=== PATIENT | female | born 1950 | race Caucasian/White ===

== ENCOUNTER 2020-07-22 14:51 | Inpatient (IN) ==
[2020-07-22] MEDS ORDERED: Dexamethasone 4 MG/ML VIAL IVP STA (15:27)
[2020-07-22] MEDS ORDERED: Acetaminophen 325 MG TABLET PO ONE (15:35)
[2020-07-22 15:43] LABS: VBG HCO3 28 mEq/L (21-27); VBG PCO2 43 mmHg (41-51); VBG PH 7.42 pH Units (7.32-7.42); VBG PO2 43 mmHg (25-50)
[2020-07-22 15:51] LABS: Basophils % 0.2 %; Hematocrit 42.9 % (35.3-44.9); Hemoglobin 14.1 g/dL (11.5-15.4); Immature Granulocytes % 0.6 % (0-4); Lymphocytes % 6.5 %; Mean Corpuscular HGB Conc 32.9 g/dL (31.6-35.5); Mean Corpuscular Volume 88.1 fL (83.0-100.0); Mean Platelet Volume 10.6 fL (9.4-12.4); Monocytes # 0.8 K/mcL (0.0-1.3); Monocytes % 5.1 %; Platelet Count 266 K/mcL (140-400); Red Blood Count 4.87 M/mcL (3.82-4.97); Red Cell Distribution Width 13.3 % (11.5-14.5); Segmented Neutrophils % 87.6 %
[2020-07-22 16:13] LABS: BUN/Creatinine Ratio 18 (6-26); Blood Urea Nitrogen 19 mg/dL (8-23); Calcium 9.1 mg/dL (8.6-10.3); Carbon Dioxide 27 mEq/L (23-29); Chloride 97 mEq/L (98-107); Glucose 135 mg/dL (70-105); Osmolality,Calculated 284 (280-300); Potassium 3.9 mEq/L (3.5-5.1); Sodium 135 mEq/L (136-145); Troponin I < 0.03 ng/mL (< 0.04); eGFR For African Americans > 60 (> 60); eGFR For Non-African Americans 51 (> 60)
[2020-07-22] MEDS ORDERED: Azithromycin 500 MG in 0.9 % Sodium Chloride 250 ML IVPB ONE (20:31)
[2020-07-22] MEDS ORDERED: cefTRIAXone 1,000 MG in Water for inj. (sterile) 10 ML IVP ONE (20:31)
[2020-07-22] MEDS ORDERED: Naloxone 0.4 MG/ML INJ IVP PRN (20:46)
[2020-07-22] MEDS ORDERED: Ondansetron 4 MG/2 ML VIAL IVP PRN (20:46)
[2020-07-22] MEDS ORDERED: Isovue-370 500 ML BOTTLE IVP ONE (20:51)
[2020-07-22] MEDS ORDERED: 0.9 % Sodium Chloride 250 ML IVC SCH (21:00)
[2020-07-22 21:32] LABS: Alanine Aminotransferase 43 Units/L (7-52); Albumin 3.5 g/dL (3.5-5.7); Alkaline Phosphatase 153 Units/L (34-104); Aspartate Amino Transferase 57 Units/L (13-39); Bilirubin,Direct 0.3 mg/dL (0.0-0.2); Bilirubin,Indirect 0.5 mg/dL (0.0-1.0); Bilirubin,Total 0.8 mg/dL (0.3-1.0); Globulin 3.6 g/dL (2.4-3.5); Lactate Dehydrogenase 328 Units/L (140-271); Total Protein 7.1 g/dL (6.4-8.9)
[2020-07-22 21:49] LABS: Ferritin 646 ng/mL (10-120)
[2020-07-22 21:59] LABS: INR 1.4; Prothrombin Time 16.4 Seconds (9.4-12.1)
[2020-07-22 22:01] LABS: Activated Partial Thrombo Time 37.1 Seconds (26.0-36.0)
[2020-07-23] MEDS: Dexamethasone 4 MG/ML VIAL IVP SCH ×3 (00:02→20:18)
[2020-07-23] MEDS: Ipratropium Neb 0.5 MG NEBULIZER IH SCH ×3 (00:28→07:38)
[2020-07-23] MEDS ORDERED: *HR* Enoxaparin 40 MG/0.4 ML SYRINGE SQ SCH (06:00)
[2020-07-23] MEDS: Ipratropium 1 PUFF INHALER IH SCH ×4 (07:37→19:49)
[2020-07-23] MEDS: Furosemide 20 MG/2 ML VIAL IVP SCH ×2 (08:42→20:18)
[2020-07-23] MEDS: levoFLOXacin 750 MG/150 ML 750 MG/150 ML BAG IVPB SCH (08:42)
[2020-07-23 09:19] LABS: Basophils % 0.1 %; Hematocrit 42.9 % (35.3-44.9); Hemoglobin 13.7 g/dL (11.5-15.4); Immature Granulocytes % 0.7 % (0-4); Lymphocytes # 0.8 K/mcL (0.6-4.6); Lymphocytes % 4.1 %; Mean Corpuscular HGB Conc 31.9 g/dL (31.6-35.5); Mean Corpuscular Hemoglobin 28.1 pg (28.0-33.3); Mean Corpuscular Volume 88.1 fL (83.0-100.0); Mean Platelet Volume 10.5 fL (9.4-12.4); Monocytes # 0.7 K/mcL (0.0-1.3); Monocytes % 3.3 %; Neutrophils # 18.5 K/mcL (1.6-8.9); Platelet Count 293 K/mcL (140-400); Red Blood Count 4.87 M/mcL (3.82-4.97); Red Cell Distribution Width 13.4 % (11.5-14.5); Segmented Neutrophils % 91.8 %; White Blood Count 20.2 K/mcL (4.3-11.1)
[2020-07-23 09:38] LABS: Albumin 3.6 g/dL (3.5-5.7); Albumin/Globulin Ratio 0.9 (1.1-2.2); Bilirubin,Total 0.6 mg/dL (0.3-1.0); Calcium 9.1 mg/dL (8.6-10.3); Globulin 3.8 g/dL (2.4-3.5); Magnesium 2.2 mg/dL (1.6-2.6); Phosphorous 3.3 mg/dL (2.7-4.5); Potassium 3.5 mEq/L (3.5-5.1); Total Protein 7.4 g/dL (6.4-8.9)
[2020-07-23] MEDS ORDERED: 0.9 % Sodium Chloride 250 ML ONE (17:09)
[2020-07-23] MEDS: carvediloL 6.25 MG TABLET PO SCH (17:15)
[2020-07-23] MEDS: Acetaminophen 325 MG TABLET PO PRN (20:19)
[2020-07-23] MEDS: *HR* Dabigatran 150 MG CAPSULE PO SCH (20:19)
[2020-07-23] MEDS ORDERED: 0.9 % Sodium Chloride 500 ML ONE (21:07)
[2020-07-24] MEDS: Ipratropium 1 PUFF INHALER IH SCH ×7 (00:03→23:40)
[2020-07-24] MEDS: Dexamethasone 4 MG/ML VIAL IVP SCH ×2 (08:21→19:55)
[2020-07-24] MEDS: *HR* Dabigatran 150 MG CAPSULE PO SCH ×2 (08:21→19:56)
[2020-07-24] MEDS: levoFLOXacin 750 MG/150 ML 750 MG/150 ML BAG IVPB SCH (08:22)
[2020-07-24] MEDS: carvediloL 6.25 MG TABLET PO SCH ×2 (08:22→17:16)
[2020-07-24] MEDS: Furosemide 20 MG/2 ML VIAL IVP SCH ×2 (08:22→19:56)
[2020-07-24] MEDS: *HR* HYDROcodone/Acet 5/325 mg TABLET PO PRN ×2 (10:53→17:15)
[2020-07-24] MEDS: Acetaminophen 325 MG TABLET PO PRN (22:15)
[2020-07-25 02:35] LABS: Basophils # 0.1 K/mcL (0.0-0.2); Basophils % 0.3 %; Hematocrit 41.3 % (35.3-44.9); Hemoglobin 13.3 g/dL (11.5-15.4); Immature Granulocytes % 0.9 % (0-4); Lymphocytes # 0.9 K/mcL (0.6-4.6); Lymphocytes % 5.3 %; Mean Corpuscular HGB Conc 32.2 g/dL (31.6-35.5); Mean Corpuscular Hemoglobin 28.8 pg (28.0-33.3); Mean Corpuscular Volume 89.4 fL (83.0-100.0); Mean Platelet Volume 11.5 fL (9.4-12.4); Monocytes # 0.4 K/mcL (0.0-1.3); Monocytes % 2.7 %; Neutrophils # 14.6 K/mcL (1.6-8.9); Platelet Count 302 K/mcL (140-400); Red Blood Count 4.62 M/mcL (3.82-4.97); Red Cell Distribution Width 13.6 % (11.5-14.5); Segmented Neutrophils % 90.8 %
[2020-07-25 02:53] LABS: BUN/Creatinine Ratio 30 (6-26); Blood Urea Nitrogen 31 mg/dL (8-23); Calcium 9.1 mg/dL (8.6-10.3); Carbon Dioxide 32 mEq/L (23-29); Chloride 97 mEq/L (98-107); Glucose 140 mg/dL (70-105); Osmolality,Calculated 299 (280-300); Potassium 3.7 mEq/L (3.5-5.1); Sodium 140 mEq/L (136-145); eGFR For African Americans > 60 (> 60); eGFR For Non-African Americans 53 (> 60)
[2020-07-25] MEDS: Ipratropium 1 PUFF INHALER IH SCH ×6 (03:27→23:26)
[2020-07-25] MEDS: Dexamethasone 4 MG/ML VIAL IVP SCH ×2 (08:29→20:32)
[2020-07-25] MEDS: levoFLOXacin 750 MG/150 ML 750 MG/150 ML BAG IVPB SCH (08:29)
[2020-07-25] MEDS: *HR* Dabigatran 150 MG CAPSULE PO SCH ×2 (08:30→20:33)
[2020-07-25] MEDS: Furosemide 20 MG/2 ML VIAL IVP SCH ×2 (08:30→20:32)
[2020-07-25] MEDS: carvediloL 6.25 MG TABLET PO SCH ×2 (08:30→16:39)
[2020-07-25] MEDS ORDERED: 0.9 % Sodium Chloride 250 ML ONE (11:09)
[2020-07-26] MEDS: Ipratropium 1 PUFF INHALER IH SCH ×5 (03:51→20:17)
[2020-07-26] MEDS: levoFLOXacin 750 MG/150 ML 750 MG/150 ML BAG IVPB SCH (09:04)
[2020-07-26] MEDS: carvediloL 6.25 MG TABLET PO SCH ×2 (09:04→16:45)
[2020-07-26] MEDS: *HR* Dabigatran 150 MG CAPSULE PO SCH ×2 (09:05→21:12)
[2020-07-26] MEDS: Furosemide 40 MG/4 ML VIAL IVP SCH ×2 (09:05→21:12)
[2020-07-26] MEDS: Dexamethasone 4 MG/ML VIAL IVP SCH ×2 (09:05→21:08)
[2020-07-26 09:51] LABS: Basophils % 0.3 %; Hematocrit 42.2 % (35.3-44.9); Hemoglobin 13.6 g/dL (11.5-15.4); Immature Granulocytes % 1.2 % (0-4); Lymphocytes # 1.2 K/mcL (0.6-4.6); Lymphocytes % 9.5 %; Mean Corpuscular HGB Conc 32.2 g/dL (31.6-35.5); Mean Corpuscular Hemoglobin 28.9 pg (28.0-33.3); Mean Corpuscular Volume 89.6 fL (83.0-100.0); Mean Platelet Volume 10.3 fL (9.4-12.4); Monocytes # 0.6 K/mcL (0.0-1.3); Monocytes % 4.7 %; Neutrophils # 10.5 K/mcL (1.6-8.9); Platelet Count 338 K/mcL (140-400); Red Blood Count 4.71 M/mcL (3.82-4.97); Red Cell Distribution Width 13.6 % (11.5-14.5); Segmented Neutrophils % 84.3 %; White Blood Count 12.5 K/mcL (4.3-11.1)
[2020-07-26 10:11] LABS: BUN/Creatinine Ratio 41 (6-26); Blood Urea Nitrogen 37 mg/dL (8-23); Calcium 8.9 mg/dL (8.6-10.3); Carbon Dioxide 34 mEq/L (23-29); Chloride 100 mEq/L (98-107); Glucose 108 mg/dL (70-105); Osmolality,Calculated 305 (280-300); Potassium 3.7 mEq/L (3.5-5.1); Sodium 143 mEq/L (136-145); eGFR For African Americans > 60 (> 60); eGFR For Non-African Americans > 60 (> 60)
[2020-07-26] MEDS ORDERED: Remdesivir 200 MG in 0.9 % Sodium Chloride 210 ML IVPB ONE (17:00)
[2020-07-27] MEDS: Ipratropium 1 PUFF INHALER IH SCH ×7 (00:02→23:52)
[2020-07-27 07:21] LABS: Basophils % 0.4 %; Hematocrit 45.3 % (35.3-44.9); Hemoglobin 14.2 g/dL (11.5-15.4); Immature Granulocytes % 1.3 % (0-4); Lymphocytes # 0.8 K/mcL (0.6-4.6); Lymphocytes % 7.9 %; Mean Corpuscular HGB Conc 31.3 g/dL (31.6-35.5); Mean Corpuscular Volume 89.2 fL (83.0-100.0); Mean Platelet Volume 10.3 fL (9.4-12.4); Monocytes # 0.5 K/mcL (0.0-1.3); Monocytes % 4.5 %; Platelet Count 367 K/mcL (140-400); Red Blood Count 5.08 M/mcL (3.82-4.97); Red Cell Distribution Width 13.4 % (11.5-14.5); Segmented Neutrophils % 85.9 %; White Blood Count 10.5 K/mcL (4.3-11.1)
[2020-07-27 07:41] LABS: BUN/Creatinine Ratio 42 (6-26); Blood Urea Nitrogen 38 mg/dL (8-23); Calcium 8.9 mg/dL (8.6-10.3); Carbon Dioxide 37 mEq/L (23-29); Chloride 95 mEq/L (98-107); Glucose 126 mg/dL (70-105); Osmolality,Calculated 305 (280-300); Potassium 3.5 mEq/L (3.5-5.1); Sodium 142 mEq/L (136-145); eGFR For African Americans > 60 (> 60); eGFR For Non-African Americans > 60 (> 60)
[2020-07-27] MEDS: Furosemide 40 MG/4 ML VIAL IVP SCH ×2 (08:54→19:57)
[2020-07-27] MEDS: carvediloL 6.25 MG TABLET PO SCH ×2 (08:55→17:33)
[2020-07-27] MEDS: *HR* Dabigatran 150 MG CAPSULE PO SCH ×2 (08:55→19:57)
[2020-07-27] MEDS: Dexamethasone 4 MG/ML VIAL IVP SCH (08:56)
[2020-07-27] MEDS: levoFLOXacin 750 MG/150 ML 750 MG/150 ML BAG IVPB SCH (08:56)
[2020-07-27 12:54] LABS: Alanine Aminotransferase 60 Units/L (7-52); Albumin 3.2 g/dL (3.5-5.7); Albumin/Globulin Ratio 0.9 (1.1-2.2); Alkaline Phosphatase 116 Units/L (34-104); Aspartate Amino Transferase 51 Units/L (13-39); Bilirubin,Indirect 0.5 mg/dL (0.0-1.0); Bilirubin,Total 0.5 mg/dL (0.3-1.0); Globulin 3.7 g/dL (2.4-3.5); Total Protein 6.9 g/dL (6.4-8.9)
[2020-07-27 14:20] LABS: Alanine Aminotransferase 55 Units/L (7-52); Albumin 3.3 g/dL (3.5-5.7); Albumin/Globulin Ratio 0.9 (1.1-2.2); Alkaline Phosphatase 106 Units/L (34-104); Aspartate Amino Transferase 43 Units/L (13-39); Bilirubin,Direct 0.1 mg/dL (0.0-0.2); Bilirubin,Indirect 0.5 mg/dL (0.0-1.0); Bilirubin,Total 0.6 mg/dL (0.3-1.0); Globulin 3.7 g/dL (2.4-3.5)
[2020-07-27] MEDS: Remdesivir 100 MG in 0.9 % Sodium Chloride 230 ML IVPB SCH (17:33)
[2020-07-27] MEDS: *HR* HYDROcodone/Acet 5/325 mg TABLET PO PRN (19:57)
[2020-07-28] MEDS: Ipratropium 1 PUFF INHALER IH SCH ×6 (03:44→23:52)
[2020-07-28] MEDS: levoFLOXacin 750 MG/150 ML 750 MG/150 ML BAG IVPB SCH (08:33)
[2020-07-28] MEDS: Furosemide 40 MG/4 ML VIAL IVP SCH ×2 (08:33→20:28)
[2020-07-28] MEDS: carvediloL 6.25 MG TABLET PO SCH ×2 (08:33→16:39)
[2020-07-28] MEDS: *HR* Dabigatran 150 MG CAPSULE PO SCH (08:33)
[2020-07-28] MEDS ORDERED: Dexamethasone 4 MG/ML VIAL IVP SCH (09:00)
[2020-07-28 09:40] LABS: Basophils % 0.2 %; Eosinophils # 0.1 K/mcL (0.0-0.6); Eosinophils % 0.4 %; Hematocrit 46.3 % (35.3-44.9); Hemoglobin 15.1 g/dL (11.5-15.4); Immature Granulocytes % 1.2 % (0-4); Lymphocytes % 7.3 %; Mean Corpuscular HGB Conc 32.6 g/dL (31.6-35.5); Mean Corpuscular Hemoglobin 27.8 pg (28.0-33.3); Mean Corpuscular Volume 85.1 fL (83.0-100.0); Mean Platelet Volume 11.3 fL (9.4-12.4); Monocytes # 0.6 K/mcL (0.0-1.3); Monocytes % 4.4 %; Neutrophils # 11.3 K/mcL (1.6-8.9); Platelet Count 305 K/mcL (140-400); Red Blood Count 5.44 M/mcL (3.82-4.97); Red Cell Distribution Width 13.4 % (11.5-14.5); Segmented Neutrophils % 86.5 %
[2020-07-28 09:54] LABS: Alanine Aminotransferase 43 Units/L (7-52); Albumin 3.3 g/dL (3.5-5.7); Alkaline Phosphatase 113 Units/L (34-104); Aspartate Amino Transferase 33 Units/L (13-39); BUN/Creatinine Ratio 44 (6-26); Bilirubin,Total 0.6 mg/dL (0.3-1.0); Blood Urea Nitrogen 42 mg/dL (8-23); Calcium 8.9 mg/dL (8.6-10.3); Carbon Dioxide 33 mEq/L (23-29); Chloride 95 mEq/L (98-107); Glucose 159 mg/dL (70-105); Osmolality,Calculated 308 (280-300); Potassium 3.6 mEq/L (3.5-5.1); Sodium 142 mEq/L (136-145); Total Protein 7.1 g/dL (6.4-8.9); eGFR For African Americans > 60 (> 60); eGFR For Non-African Americans 58 (> 60)
[2020-07-28 09:55] LABS: Albumin/Globulin Ratio 0.9 (1.1-2.2); Globulin 3.8 g/dL (2.4-3.5)
[2020-07-28] MEDS ORDERED: Dexamethasone 4 MG/ML VIAL IVP ONE (15:58)
[2020-07-28] MEDS: Remdesivir 100 MG in 0.9 % Sodium Chloride 230 ML IVPB SCH (16:40)
[2020-07-29 02:54] LABS: Basophils % 0.3 %; Hematocrit 46.5 % (35.3-44.9); Hemoglobin 14.3 g/dL (11.5-15.4); Immature Granulocytes % 1.1 % (0-4); Lymphocytes # 0.8 K/mcL (0.6-4.6); Lymphocytes % 7.3 %; Mean Corpuscular HGB Conc 30.8 g/dL (31.6-35.5); Mean Corpuscular Hemoglobin 27.4 pg (28.0-33.3); Mean Corpuscular Volume 89.3 fL (83.0-100.0); Mean Platelet Volume 10.4 fL (9.4-12.4); Monocytes # 0.3 K/mcL (0.0-1.3); Monocytes % 2.8 %; Neutrophils # 9.6 K/mcL (1.6-8.9); Platelet Count 378 K/mcL (140-400); Red Blood Count 5.21 M/mcL (3.82-4.97); Red Cell Distribution Width 13.3 % (11.5-14.5); Segmented Neutrophils % 88.5 %; White Blood Count 10.9 K/mcL (4.3-11.1)
[2020-07-29 03:09] LABS: Alanine Aminotransferase 33 Units/L (7-52); Albumin 3.3 g/dL (3.5-5.7); Albumin/Globulin Ratio 0.9 (1.1-2.2); Alkaline Phosphatase 106 Units/L (34-104); Aspartate Amino Transferase 22 Units/L (13-39); BUN/Creatinine Ratio 43 (6-26); Bilirubin,Total 0.5 mg/dL (0.3-1.0); Blood Urea Nitrogen 39 mg/dL (8-23); Calcium 8.8 mg/dL (8.6-10.3); Carbon Dioxide 35 mEq/L (23-29); Chloride 93 mEq/L (98-107); Globulin 3.5 g/dL (2.4-3.5); Glucose 155 mg/dL (70-105); Osmolality,Calculated 303 (280-300); Potassium 3.3 mEq/L (3.5-5.1); Sodium 140 mEq/L (136-145); Total Protein 6.8 g/dL (6.4-8.9); eGFR For African Americans > 60 (> 60); eGFR For Non-African Americans > 60 (> 60)
[2020-07-29] MEDS: Ipratropium 1 PUFF INHALER IH SCH ×6 (03:41→23:43)
[2020-07-29] MEDS ORDERED: levoFLOXacin 750 MG TABLET PO SCH (09:00)
[2020-07-29] MEDS: Dexamethasone 4 MG/ML VIAL IVP SCH (09:20)
[2020-07-29] MEDS: carvediloL 6.25 MG TABLET PO SCH ×2 (09:21→17:20)
[2020-07-29] MEDS: Furosemide 40 MG/4 ML VIAL IVP SCH (09:21)
[2020-07-29] MEDS: Furosemide 20 MG/2 ML VIAL IVP SCH (17:18)
[2020-07-29] MEDS: Remdesivir 100 MG in 0.9 % Sodium Chloride 230 ML IVPB SCH (17:19)
[2020-07-30] MEDS: Ipratropium 1 PUFF INHALER IH SCH ×6 (03:37→23:48)
[2020-07-30] MEDS: *HR* Enoxaparin 40 MG/0.4 ML SYRINGE SQ SCH (05:05)
[2020-07-30] MEDS: Dexamethasone 4 MG/ML VIAL IVP SCH (09:23)
[2020-07-30] MEDS: carvediloL 6.25 MG TABLET PO SCH ×2 (09:23→16:35)
[2020-07-30] MEDS: Furosemide 20 MG/2 ML VIAL IVP SCH ×2 (09:23→16:36)
[2020-07-30 10:18] LABS: Hematocrit 48.1 % (35.3-44.9); Hemoglobin 15.4 g/dL (11.5-15.4); Mean Corpuscular Hemoglobin 28.5 pg (28.0-33.3); Mean Corpuscular Volume 88.9 fL (83.0-100.0); Mean Platelet Volume 10.6 fL (9.4-12.4); Platelet Count 389 K/mcL (140-400); Red Blood Count 5.41 M/mcL (3.82-4.97); Red Cell Distribution Width 13.2 % (11.5-14.5); White Blood Count 15.3 K/mcL (4.3-11.1)
[2020-07-30 10:19] LABS: INR 1.5; Prothrombin Time 16.7 Seconds (9.4-12.1)
[2020-07-30 10:37] LABS: Alanine Aminotransferase 24 Units/L (7-52); Albumin 3.3 g/dL (3.5-5.7); Albumin/Globulin Ratio 0.9 (1.1-2.2); Alkaline Phosphatase 100 Units/L (34-104); Aspartate Amino Transferase 16 Units/L (13-39); BUN/Creatinine Ratio 44 (6-26); Bilirubin,Total 0.6 mg/dL (0.3-1.0); Blood Urea Nitrogen 43 mg/dL (8-23); C-Reactive Protein 78 mg/L (Less than 10); Calcium 8.9 mg/dL (8.6-10.3); Carbon Dioxide 35 mEq/L (23-29); Chloride 91 mEq/L (98-107); Globulin 3.6 g/dL (2.4-3.5); Glucose 141 mg/dL (70-105); Lactate Dehydrogenase 263 Units/L (140-271); Magnesium 2.1 mg/dL (1.6-2.6); Osmolality,Calculated 303 (280-300); Sodium 140 mEq/L (136-145); Total Protein 6.9 g/dL (6.4-8.9); eGFR For African Americans > 60 (> 60); eGFR For Non-African Americans 56 (> 60)
[2020-07-30 10:50] LABS: Ferritin 448 ng/mL (10-120)
[2020-07-30] MEDS: Remdesivir 100 MG in 0.9 % Sodium Chloride 230 ML IVPB SCH (17:07)
[2020-07-31] MEDS: Ipratropium 1 PUFF INHALER IH SCH ×6 (03:33→23:45)
[2020-07-31] MEDS: *HR* Enoxaparin 40 MG/0.4 ML SYRINGE SQ SCH (05:38)
[2020-07-31] MEDS: carvediloL 6.25 MG TABLET PO SCH ×2 (08:55→16:43)
[2020-07-31] MEDS: Dexamethasone 4 MG/ML VIAL IVP SCH (08:55)
[2020-07-31] MEDS: Furosemide 20 MG/2 ML VIAL IVP SCH ×2 (08:56→16:44)
[2020-07-31 14:59] LABS: Alanine Aminotransferase 18 Units/L (7-52); Albumin 3.1 g/dL (3.5-5.7); Albumin/Globulin Ratio 0.9 (1.1-2.2); Alkaline Phosphatase 88 Units/L (34-104); Aspartate Amino Transferase 14 Units/L (13-39); BUN/Creatinine Ratio 48 (6-26); Bilirubin,Total 0.6 mg/dL (0.3-1.0); Blood Urea Nitrogen 47 mg/dL (8-23); Calcium 8.5 mg/dL (8.6-10.3); Carbon Dioxide 34 mEq/L (23-29); Chloride 92 mEq/L (98-107); Globulin 3.3 g/dL (2.4-3.5); Glucose 301 mg/dL (70-105); Osmolality,Calculated 304 (280-300); Sodium 135 mEq/L (136-145); Total Protein 6.4 g/dL (6.4-8.9); eGFR For African Americans > 60 (> 60); eGFR For Non-African Americans 56 (> 60)
[2020-08-01] MEDS: Ipratropium 1 PUFF INHALER IH SCH ×6 (03:52→23:59)
[2020-08-01] MEDS: *HR* Enoxaparin 40 MG/0.4 ML SYRINGE SQ SCH (05:39)
[2020-08-01] MEDS: Furosemide 20 MG/2 ML VIAL IVP SCH ×2 (08:50→16:29)
[2020-08-01] MEDS: carvediloL 6.25 MG TABLET PO SCH ×2 (08:50→16:29)
[2020-08-01] MEDS: Dexamethasone 4 MG/ML VIAL IVP SCH (08:50)
[2020-08-01 11:37] LABS: Hematocrit 48.6 % (35.3-44.9); Hemoglobin 15.5 g/dL (11.5-15.4); Mean Corpuscular HGB Conc 31.9 g/dL (31.6-35.5); Mean Corpuscular Hemoglobin 28.7 pg (28.0-33.3); Mean Corpuscular Volume 89.8 fL (83.0-100.0); Mean Platelet Volume 10.4 fL (9.4-12.4); Platelet Count 316 K/mcL (140-400); Red Blood Count 5.41 M/mcL (3.82-4.97); Red Cell Distribution Width 13.3 % (11.5-14.5); White Blood Count 18.1 K/mcL (4.3-11.1)
[2020-08-01 11:54] LABS: BUN/Creatinine Ratio 52 (6-26); Blood Urea Nitrogen 43 mg/dL (8-23); C-Reactive Protein 39 mg/L (Less than 10); Calcium 8.7 mg/dL (8.6-10.3); Carbon Dioxide 36 mEq/L (23-29); Chloride 90 mEq/L (98-107); Glucose 139 mg/dL (70-105); Magnesium 2.1 mg/dL (1.6-2.6); Osmolality,Calculated 295 (280-300); Potassium 3.8 mEq/L (3.5-5.1); Sodium 136 mEq/L (136-145); eGFR For African Americans > 60 (> 60); eGFR For Non-African Americans > 60 (> 60)
[2020-08-01 14:11] LABS: INR 1.2; Prothrombin Time 13.7 Seconds (9.4-12.1)
[2020-08-02] MEDS: Ipratropium 1 PUFF INHALER IH SCH ×6 (03:45→23:57)
[2020-08-02] MEDS: *HR* Enoxaparin 40 MG/0.4 ML SYRINGE SQ SCH (05:41)
[2020-08-02] MEDS: carvediloL 6.25 MG TABLET PO SCH ×2 (09:02→15:25)
[2020-08-02] MEDS: Dexamethasone 4 MG/ML VIAL IVP SCH (09:02)
[2020-08-02] MEDS: Furosemide 20 MG/2 ML VIAL IVP SCH (09:02)
[2020-08-02] MEDS: *HR* Dabigatran 150 MG CAPSULE PO SCH (20:32)
[2020-08-03 03:29] LABS: Hematocrit 44.5 % (35.3-44.9); Hemoglobin 14.2 g/dL (11.5-15.4); Mean Corpuscular HGB Conc 31.9 g/dL (31.6-35.5); Mean Corpuscular Hemoglobin 27.6 pg (28.0-33.3); Mean Corpuscular Volume 86.6 fL (83.0-100.0); Mean Platelet Volume 11.1 fL (9.4-12.4); Platelet Count 342 K/mcL (140-400); Red Blood Count 5.14 M/mcL (3.82-4.97); Red Cell Distribution Width 12.9 % (11.5-14.5); White Blood Count 14.4 K/mcL (4.3-11.1)
[2020-08-03] MEDS: Ipratropium 1 PUFF INHALER IH SCH ×6 (03:42→23:44)
[2020-08-03 04:10] LABS: BUN/Creatinine Ratio 47 (6-26); Blood Urea Nitrogen 38 mg/dL (8-23); Calcium 8.6 mg/dL (8.6-10.3); Carbon Dioxide 37 mEq/L (23-29); Chloride 88 mEq/L (98-107); Glucose 136 mg/dL (70-105); Magnesium 2.2 mg/dL (1.6-2.6); Osmolality,Calculated 293 (280-300); Potassium 3.6 mEq/L (3.5-5.1); Sodium 136 mEq/L (136-145); eGFR For African Americans > 60 (> 60); eGFR For Non-African Americans > 60 (> 60)
[2020-08-03] MEDS: *HR* Dabigatran 150 MG CAPSULE PO SCH ×2 (07:23→20:57)
[2020-08-03] MEDS: carvediloL 6.25 MG TABLET PO SCH (07:23)
[2020-08-03] MEDS: Dexamethasone Sodium Phos/PF 10 MG/ML VIAL IVP SCH (07:23)
[2020-08-04] MEDS: Ipratropium 1 PUFF INHALER IH SCH ×6 (03:15→23:58)
[2020-08-04 04:44] LABS: Basophils % 0.1 %; Eosinophils % 0.1 %; Hemoglobin 14.6 g/dL (11.5-15.4); Immature Granulocytes % 0.5 % (0-4); Lymphocytes # 1.4 K/mcL (0.6-4.6); Lymphocytes % 8.8 %; Mean Corpuscular HGB Conc 32.4 g/dL (31.6-35.5); Mean Corpuscular Hemoglobin 28.3 pg (28.0-33.3); Mean Corpuscular Volume 87.2 fL (83.0-100.0); Mean Platelet Volume 10.5 fL (9.4-12.4); Monocytes % 6.6 %; Neutrophils # 12.9 K/mcL (1.6-8.9); Platelet Count 301 K/mcL (140-400); Red Blood Count 5.16 M/mcL (3.82-4.97); Red Cell Distribution Width 12.7 % (11.5-14.5); Segmented Neutrophils % 83.9 %; White Blood Count 15.4 K/mcL (4.3-11.1)
[2020-08-04] MEDS: Dexamethasone Sodium Phos/PF 10 MG/ML VIAL IVP SCH (10:56)
[2020-08-04] MEDS: *HR* Dabigatran 150 MG CAPSULE PO SCH (11:07)
[2020-08-05] MEDS: Ipratropium 1 PUFF INHALER IH SCH ×6 (03:23→23:53)
[2020-08-05] MEDS ORDERED: *HR* Enoxaparin 40 MG/0.4 ML SYRINGE SQ SCH (06:00)
[2020-08-05] MEDS: Dexamethasone Sodium Phos/PF 10 MG/ML VIAL IVP SCH (07:42)
[2020-08-05] MEDS: *HR* HYDROcodone/Acet 5/325 mg TABLET PO PRN (07:42)
[2020-08-05] MEDS: *HR* Dabigatran 150 MG CAPSULE PO SCH (22:01)
[2020-08-06] MEDS: Ipratropium 1 PUFF INHALER IH SCH ×5 (03:34→20:39)
[2020-08-06 04:39] LABS: Hematocrit 41.3 % (35.3-44.9); Hemoglobin 13.2 g/dL (11.5-15.4); Mean Corpuscular Hemoglobin 27.8 pg (28.0-33.3); Mean Corpuscular Volume 87.1 fL (83.0-100.0); Mean Platelet Volume 10.6 fL (9.4-12.4); Platelet Count 267 K/mcL (140-400); Red Blood Count 4.74 M/mcL (3.82-4.97); White Blood Count 11.7 K/mcL (4.3-11.1)
[2020-08-06 04:41] LABS: INR 1.1; Prothrombin Time 12.9 Seconds (9.4-12.1)
[2020-08-06 05:01] LABS: BUN/Creatinine Ratio 42 (6-26); Blood Urea Nitrogen 30 mg/dL (8-23); C-Reactive Protein 11 mg/L (Less than 10); Calcium 8.6 mg/dL (8.6-10.3); Carbon Dioxide 37 mEq/L (23-29); Chloride 89 mEq/L (98-107); Glucose 120 mg/dL (70-105); Magnesium 2.2 mg/dL (1.6-2.6); Osmolality,Calculated 287 (280-300); Potassium 3.1 mEq/L (3.5-5.1); Sodium 135 mEq/L (136-145); eGFR For African Americans > 60 (> 60); eGFR For Non-African Americans > 60 (> 60)
[2020-08-06] MEDS ORDERED: Potassium Chloride 40 MEQ, Lidocaine 1% 2 ML in 0.9 % Sodium Chloride 500 ML IVPB ONE (07:39)
[2020-08-06] MEDS: *HR* Dabigatran 150 MG CAPSULE PO SCH ×2 (07:49→20:19)
[2020-08-06] MEDS: Dexamethasone Sodium Phos/PF 10 MG/ML VIAL IVP SCH (07:50)
[2020-08-07] MEDS: Ipratropium 1 PUFF INHALER IH SCH ×7 (00:01→20:22)
[2020-08-07] MEDS: *HR* Dabigatran 150 MG CAPSULE PO SCH (10:04)
[2020-08-07] MEDS: Dexamethasone Sodium Phos/PF 10 MG/ML VIAL IVP SCH (10:05)
[2020-08-07 11:50] LABS: Basophils % 0.2 %; Eosinophils # 0.1 K/mcL (0.0-0.6); Eosinophils % 1.1 %; Hematocrit 43.7 % (35.3-44.9); Hemoglobin 14.1 g/dL (11.5-15.4); Immature Granulocytes % 0.4 % (0-4); Lymphocytes # 1.7 K/mcL (0.6-4.6); Lymphocytes % 15.4 %; Mean Corpuscular HGB Conc 32.3 g/dL (31.6-35.5); Mean Corpuscular Hemoglobin 28.4 pg (28.0-33.3); Mean Corpuscular Volume 87.9 fL (83.0-100.0); Mean Platelet Volume 10.5 fL (9.4-12.4); Monocytes # 0.9 K/mcL (0.0-1.3); Monocytes % 7.9 %; Neutrophils # 8.4 K/mcL (1.6-8.9); Platelet Count 255 K/mcL (140-400); Red Blood Count 4.97 M/mcL (3.82-4.97); Red Cell Distribution Width 13.3 % (11.5-14.5); White Blood Count 11.2 K/mcL (4.3-11.1)
[2020-08-07 12:19] LABS: BUN/Creatinine Ratio 39 (6-26); Blood Urea Nitrogen 33 mg/dL (8-23); Calcium 8.9 mg/dL (8.6-10.3); Carbon Dioxide 34 mEq/L (23-29); Chloride 94 mEq/L (98-107); Glucose 89 mg/dL (70-105); Osmolality,Calculated 289 (280-300); Sodium 136 mEq/L (136-145); eGFR For African Americans > 60 (> 60); eGFR For Non-African Americans > 60 (> 60)
[2020-08-07 15:46] LABS: Adenovirus Not Detected (Not Detect); Coronavirus 229E Not Detected (Not Detect); Coronavirus HKU1 Not Detected (Not Detect); Coronavirus NL63 Not Detected (Not Detect); Coronavirus OC43 Not Detected (Not Detect)
[2020-08-07 15:47] LABS: Bordetella Pertussis Not Detected (Not Detect); Chlamydophila pneumoniae Not Detected (Not Detect); Human Metapneumovirus Not Detected (Not Detect); Human Rhinovirus/Enterovirus Not Detected (Not Detect); Influenza A Subtype 2009 H1 Not Detected (Not Detect); Influenza B Not Detected (Not Detect); Mycoplasma pneumoniae Not Detected (Not Detect); Parainfluenza Virus 1 Not Detected (Not Detect); Parainfluenza Virus 2 Not Detected (Not Detect); Parainfluenza Virus 3 Not Detected (Not Detect); Parainfluenza Virus 4 Not Detected (Not Detect); Respiratory Syncytial Virus Not Detected (Not Detect); SARS-CoV-2 Not Detected (Not Detect)
[2020-08-07 16:34] VITALS: BP 127/72
[2020-08-07] MEDS ORDERED: FLU Vac QV 20-21 (6Month+)/PF 0.5 ML SYRINGE IM ONE (16:50)
== END 2020-08-07 22:12 | disposition other institution (70) | DRG 177 ==
LOC: EMEROOARM 14:51 → CDU 14:51 → SUATTDRO 21:56 → CDU 22:29 → 2NENU 07-23 18:12 → SUATTDRO 07-24 08:29 → 2NENU 07-25 09:06
PROVIDERS: ADMIT Internal Medicine; ATTEND Family Medicine